=== PATIENT | male | born 2000 | race Caucasian/White ===

== ENCOUNTER 2023-12-27 10:49 | Emergency (ER) | payer MEDICAID ==
[~2023-12-27] VITALS: Ht 162.6 cm; Wt 60.0 kg
[2023-12-27 10:55] VITALS: O2SAT 100
[2023-12-27 12:05] LABS: BASOPHILS % 1.2 % (0.0-2.0); EOSINOPHILS % 8.5 % (0.0-5.0); HEMOGLOBIN. 15.5 g/dL (14.0-18.0); LYMPHOCYTES % 29.5 % (20.0-50.0); MEAN CORPUSCULAR HEMOGLOBIN 30.4 pg (28.0-32.0); MEAN CORPUSCULAR HGB CONC 32.9 g/dL (31.0-37.0); MEAN CORPUSCULAR VOLUME 92.5 fL (80.0-94.0); MEAN PLATELET VOLUME 7.9 fl (7.4-10.4); NEUTROPHILS % 55.8 % (40.0-76.0); PLATELET 270 x1000/uL (130-400); RED BLOOD CELL COUNT 5.08 mill/uL (4.7-6.1); RED CELL DISTRIBUTION WIDTH 12.7 % (11.6-14.6); WHITE BLOOD COUNT 7.9 x1000/uL (4.5-11.0)
[2023-12-27 12:10] LABS: CHLORIDE 106 mEq/L (98-107); POTASSIUM 4.3 mEq/L (3.5-5.1); SODIUM 139 mEq/L (136-145)
[2023-12-27 12:11] LABS: CALCIUM 9.6 mg/dL (8.7-10.4); CARBON DIOXIDE 30 mEq/L (21-32)
[2023-12-27 12:16] LABS: GLUCOSE 92 mg/dL (70-105); UREA NITROGEN BLOOD 9 mg/dL (9-23)
[2023-12-27 12:18] LABS: ALANINE AMINOTRANSFERASE 20 IU/L (10-49); ALBUMIN 4.6 g/dL (3.2-4.8); ASPARTATE AMINOTRANSFERASE 24 IU/L (<34); BILIRUBIN TOTAL 0.5 mg/dL (0.1-1.0); PROTEIN TOTAL 7.5 g/dL (6.0-8.3)
[2023-12-27] MEDS: IBUPROFEN 600MG TABLET PO ONE (12:19)
[2023-12-27 13:25] VITALS: BP 121/63; PULSE 64; RESP 16; TEMP 36.78072; O2SAT 100
[2023-12-27] MEDS ORDERED: IOHEXOL-300 100 ML BOTTLE ONE (16:13)
== END 2023-12-27 13:37 | disposition home or self-care (01) ==
LOC: ER 10:49
DX: R68.84 Jaw pain (principal); J45.909 Unspecified asthma, uncomplicated; Z98.890 Other specified postprocedural states
CPT/HCPCS: 80053; 85025; 36415; 70487; 99285; Q9967; Z7610